=== PATIENT | male | born 1980 | race Caucasian/White ===

== ENCOUNTER 2024-02-02 09:47 | Day surgery (SDC) | payer OTHER ==
[2024-02-02] MEDS ORDERED: LIDOCAINE HCL 1% AMPUL 5 ML IJ ONE (09:48)
[2024-02-02] MEDS ORDERED: Decadron 4 MG INJ IV ONE (09:48)
[2024-02-02] MEDS ORDERED: Sodium Chloride 0.9(Preservative Free) 10 ML IJ ONE (09:48)
[2024-02-02] MEDS ORDERED: DIPRIVAN 200 MG/20 ML IV ONE (11:49)
--- NOTE | 2024-02-02 12:26 | XRAY ---
Indication: Left C2-C4 MBB. Intraoperative fluoroscopy provided for 1 minute 6 seconds. 3 digital spot image submitted for interpretation demonstrates posterior needle tips projecting over expect left C2-C4 nerve roots. Correlate with intraoperative findings/report.
--- NOTE | 2024-02-02 13:10 | XRAY ---
One minute and 6 seconds of fluoroscopy was used in surgery for a left C2-C4 MBB.
== END 2024-02-02 12:06 | disposition home or self-care (01) ==
LOC: SDC-PAIN 09:47
PROVIDERS: ATTEND Psychiatry & Neurology Pain Medicine
DX: M47.812 Spondylosis without myelopathy or radiculopathy, cervical region (principal)
CPT/HCPCS: 64490; 64492; 72040; 77002; J1100; J2704

== ENCOUNTER 2024-03-15 15:22 | Day surgery (SDC) | payer OTHER ==
[2024-03-15] MEDS ORDERED: LIDOCAINE HCL 1% AMPUL 5 ML IJ ONE (15:23)
[2024-03-15] MEDS ORDERED: Decadron 4 MG INJ IV ONE (15:23)
[2024-03-15] MEDS ORDERED: Sodium Chloride 0.9(Preservative Free) 10 ML IJ ONE (15:23)
--- NOTE | 2024-03-15 19:29 | XRAY ---
Indication: Cervical MAYELIN. Intraoperative fluoroscopy provided for 35 seconds. 4 digital spot images submitted for interpretation demonstrates posterior needle tip projecting posterior to cervical thoracic junction. Small amount of contrast injected for needle tip placement. Correlate with intraoperative findings/report.
--- NOTE | 2024-03-15 19:35 | XRAY ---
35 seconds of fluoroscopy used in surgery for a cervical MAYELIN.
== END 2024-03-15 18:01 ==
LOC: SDC-PAIN 15:22
PROVIDERS: ATTEND Psychiatry & Neurology Pain Medicine
DX: M54.12 Radiculopathy, cervical region (principal)
CPT/HCPCS: 62321; 72040; 77003; J1100; Q9966